=== PATIENT | male | born 1950 | race Caucasian/White ===

== ENCOUNTER 2018-01-15 06:35 | Outpatient (CLI) | payer MEDICARE ==
--- NOTE | 2018-01-15 08:28 | ULT ---
ABDOMINAL AORTIC ULTRASOUND: HISTORY: A 67-year-old male with a history of abdominal aortic aneurysm screening. Coronary artery arteriovas cular disease. No evidence for an aortic aneurysm. There are some changes of atherosclerosis within the aorta. The bifurcation and proximal iliac vessels show no evidence for aneurysm. IMPRESSION: No evidence of abdominal or proximal iliac artery aneurysm. Exam is limited because of body habitus and bowel gas. Evidence for abdominal aortic atherosclerosis. POS: OFF
== END 2018-01-15 06:36 | disposition home or self-care (01) ==
LOC: ULT 06:35
PROVIDERS: ATTEND Family Medicine
DX: Z13.6 Encounter for screening for cardiovascular disorders (principal); I70.0 Atherosclerosis of aorta
CPT/HCPCS: 76775

== ENCOUNTER 2018-02-01 16:02 | Outpatient (CLI) | payer MEDICARE ==
--- NOTE | 2018-02-01 16:41 | ULT ---
TESTICULAR ULTRASOUND: 02/01/18 HISTORY: Right testicle pain. Ultrasound imaging of the right and left testes were performed. The right testicle measures 4.1 and t he left 4.6 cm in size. No testicular masses or identified. A somewhat complex 5 mm epididymal cyst i s seen on the left and a small 3 mm cyst is seen in the right epididymis. DOPPLER EVALUATION WITH SPECTRAL ANALYSIS: Normal flow is shown to both testes. IMPRESSION: Small epididymal cyst with small left hydrocele. POS: [facility]
== END 2018-02-01 16:03 | disposition home or self-care (01) ==
LOC: ULT 16:02
PROVIDERS: ATTEND Urology
DX: N43.3 Hydrocele, unspecified (principal); N50.3 Cyst of epididymis
CPT/HCPCS: 76870; 81001; 87086; 93976; G0103; 36415

== ENCOUNTER 2018-06-14 06:33 | Day surgery (SDC) | payer MEDICARE ==
[2018-06-13 11:09] VITALS: BMI 31.3
[~2018-06-14 06:33] MED LIST: Cyclopentolate 1% Opth Drop 2 ML BOT L EYE SCH; Phenylephrine 2.5% Ophth Soln 5 ML BOT L EYE SCH
[2018-06-14] MEDS ORDERED: Phenylephrine 2.5% Ophth Soln 5 ML BOT ONE (06:55)
[2018-06-14] MEDS ORDERED: Cyclopentolate 1% Opth Drop 2 ML BOT ONE (06:55)
[2018-06-14] MEDS ORDERED: Midazolam HCl 2 mg/2 ml Vial ONE (07:56)
[2018-06-14] MEDS ORDERED: PROPOFOL 20 ML ONE (07:57)
--- NOTE | 2018-06-14 10:46 | OP ---
DATE OF PROCEDURE: 06/14/2018 PREOPERATIVE DIAGNOSIS: Vitreous opacifications membrane, left eye. POSTOPERATIVE DIAGNOSIS: Vitreous opacifications membrane, left eye. PROCEDURE: Pars plana vitrectomy and membrane peel, left eye. SURGEON: Dr. Alberto Fraga ANESTHESIA: Local with monitored anesthesia care. COMPLICATIONS: None. PROCEDURE IN DETAIL: The patient identified in the preoperative holding area. Appropriate informed consent for the planned surgical procedure on the left eye had been obtained. The patient was transp orted to the operative suite. Appropriate cardiopulmonary monitoring established. Local anesthesia obtained retrobulbar. Modified Van Lint lid block using 50:50 mixture of 4% lidocaine and 0.75% bupi vacaine. The patient was prepped and draped in the usual sterile manner for ophthalmic surgery on th e left eye. Lid speculum was placed in the left eye. The 25-gauge trocars were placed in conjunctiv a and sclera supratemporally, inferotemporally, and supranasally. Infusion line was placed inferotem porally. Light pipe and vitreous cutter were inserted into the eye. Core vitrectomy was performed. Vitreous membranes were peeled from the retinal surface and trimmed into the periphery using wide fi eld viewing system, the periphery was examined using wide field viewing the peripheral laser and prop hylactic laser was placed behind the sclerotomies using endolaser photocoagulation. Trocars were rem jose. The eye was noted to retain pressure well, retrobulbar Kenalog and subconjunctival Ancef were placed. Atropine and antibiotic ointment were placed. The eye was patched and shielded. The patien t was taken to the postoperative recovery unit in good condition having suffered no immediate periope rative complications. DISCHARGE INSTRUCTIONS: The patient was instructed to keep patch and shield on, avoid lifting or elidia ding, and follow up in the morning with Dr. Fraga.
[2018-06-14] MEDS ORDERED: Lidocaine 4% PF 5 ML AMP ONE (12:01)
[2018-06-14] MEDS ORDERED: PROPOFOL 200 MG/20 ML VIAL ONE (12:01)
[2018-06-14] MEDS ORDERED: Bupivacaine 0.75% 10 ML AMP ONE (12:01)
[2018-06-14] MEDS ORDERED: CEFAZOLIN 1 GM VIAL ONE (12:01)
[2018-06-14] MEDS ORDERED: Triamcinolone 40 MG/ML VIAL ONE (12:01)
[2018-06-14] MEDS ORDERED: Lidocaine 1% PF 5 ML VIAL ONE (12:01)
[2018-06-14] MEDS ORDERED: Maxitrol 0.1% Opth Oint 3.5 GM TUBE ONE (12:01)
== END 2018-06-14 09:39 | disposition home or self-care (01) ==
LOC: SDC 06:33
PROVIDERS: ATTEND Ophthalmology Retina Specialist
PROC: 08T53ZZ Resection of Left Vitreous, Percutaneous Approach (ICD-10-PCS; principal; 2018-06-14)
PROC: 08QF3ZZ Repair Left Retina, Percutaneous Approach (ICD-10-PCS; 2018-06-14)
PROC: 08NF3ZZ Release Left Retina, Percutaneous Approach (ICD-10-PCS; 2018-06-14)
DX: H43.312 Vitreous membranes and strands, left eye (principal); Z79.02 Long term (current) use of antithrombotics/antiplatelets; Z79.82 Long term (current) use of aspirin; Z79.899 Other long term (current) drug therapy
CPT/HCPCS: J0690; J2001; J2250; J2704; J3301; J3490

== ENCOUNTER 2018-07-16 13:25 | Outpatient (CLI) | payer MEDICARE ==
[~2018-07-16 13:25] MED LIST changes: -Cyclopentolate 1% Opth Drop 2 ML BOT L EYE SCH; +Gadobenate Dimeglumine 529 MG/1 ML (20ML VIAL) ONE; -Phenylephrine 2.5% Ophth Soln 5 ML BOT L EYE SCH
--- NOTE | 2018-07-17 12:07 | MRI ---
MRI PELVIS (PROSTATE) WITH AND WITHOUT IV CONTRAST: HISTORY: A 67-year-old male with a normal PSA of 0.42 on 02/01/2018. Disorder of prostate, unspecified. Family history of malignant neoplasm of prostate. TECHNIQUE: Multiplanar, multisequence MRI of the pelvis was performed with and without IV contrast using the pro state protocol. Review was also performed on an independent 3D work station. FINDINGS: The prostate measures 4 x 2.5 x 3.5 cm with a volume of 18 cc. No focal abnormal area of restricted diffusion is seen in the peripheral zone. No lentiform area of abnormally decreased T2 signal is seen in the transitional zone. No focal arterial enhancing mass is identified. The prostatic capsule is intact. The seminal vesicles are intact. No lymphadenopathy is seen. Pelvic sidewall is normal. No abnormality of the visualized portions of the rectum is note d. The transitional zone demonstrates an organized chaos pattern consistent with BPH. No abnormal are as of signal replacement are seen on the T1 weighted sequences of the pelvis to suggest osseous metas tatic disease. IMPRESSION: PIRADS 2: low (clinically significant prostate cancer is unlikely to be present). This exam was interpreted in consultation with Florencio Cosby and Brendan Wong who concur. POS: [facility]
== END 2018-07-16 13:26 | disposition home or self-care (01) ==
LOC: TBSIIMAG 13:25
PROVIDERS: ATTEND Urology
DX: N42.9 Disorder of prostate, unspecified (principal); Z80.42 Family history of malignant neoplasm of prostate
CPT/HCPCS: 72197; 82565; A9579

== ENCOUNTER 2019-01-24 17:56 | Emergency (ER) | payer MEDICARE, OTHER ==
--- NOTE | 2019-01-24 18:46 | RAD ---
PORTABLE CHEST: 01/24/19 HISTORY: Shortness of breath. COMPARISON: 06/15/14. FINDINGS: Mild cardiomegaly with postop sternotomy change. I cannot exclude atelectasis or infiltrate in the le ft lung base. The lungs otherwise appear clear. There is no evidence of avascular congestion. IMPRESSION: Question atelectasis or infiltrate in the left lung base. POS: [facility]
[2019-01-24 18:57] LABS: #Basophils 0.1 thou/uL (0.0-0.2); #Eosinphils 0.1 thou/uL (0.0-0.7); #Lymphocytes 1.9 thou/uL (1.20-3.40); #Monocytes 0.6 thou/uL (0.11-0.59); #Neutrophils 6.5 thou/uL (1.40-6.50); %Basophils 0.7 % (0.0-1.0); %Eosinophils 1.5 % (0.0-10.0); %Lymphocytes 20.5 % (21.0-51.0); %Monocytes 6.3 % (0.0-10.0); Hemoglobin 15.1 g/dL (14.0-18.0); Mean Corpuscular HGB CONC 34.1 g/dL (32.0-36.0); Mean Corpuscular Hemoglobin 30.6 pg (27.0-31.0); Mean Corpuscular Volume 89.9 fL (78.0-98.0); Mean Platelet Volume 7.3 fL (7.4-10.4); Platelet Count 162 thou/uL (130-400); RBC Distribution Width 11.7 % (11.5-14.5); Red Blood Cell (RBC) Count 4.93 mill/uL (4.70-6.10); White Blood Cell (WBC) Count 9.2 thou/uL (4.8-10.8)
[2019-01-24 19:20] LABS: ALT (SGPT) 22 U/L (8-55); AST (SGOT) 22 U/L (5-34); Albumin 4.7 g/dL (3.4-4.8); Alkaline Phosphatase 64 U/L (40-150); Anion Gap 12 mmol/L (10-20); BUN (Urea Nitrogen) 26 mg/dL (8.4-25.7); Bilirubin, Total 1.1 mg/dL (0.2-1.2); Calc. Creatinine Clearance 0 mL/min (70-130); Carbon Dioxide 29 mmol/L (23-31); Chloride 104 mmol/L (98-107); Estimated GFR-MDRD 47; Globulin 2.1 g/dL (2.4-3.5); Glucose 107 mg/dL (80-115); Potassium 4.3 mmol/L (3.5-5.1); Protein, Total 6.8 g/dL (5.8-8.1); Sodium 141 mmol/L (136-145)
== END 2019-01-24 20:15 | disposition home or self-care (01) ==
LOC: ERS 17:56
DX: R06.02 Shortness of breath (principal); R60.0 Localized edema
CPT/HCPCS: 36415; 71045; 80053; 83880; 84484; 85025; 93005

== ENCOUNTER 2019-02-19 20:30 | Outpatient (CLI) | payer MEDICARE, OTHER | END 2019-02-19 20:31 | disposition home or self-care (01) | LOC: SLEEPLAB 20:30 | PROVIDERS: ATTEND Family Medicine | DX: G47.33 Obstructive sleep apnea (adult) (pediatric) (principal); G47.31 Primary central sleep apnea | CPT/HCPCS: 95811 ==

== ENCOUNTER → 2019-05-23 | Day surgery (SDC) | payer MEDICARE, OTHER ==
[2019-05-22 13:37] VITALS: BMI 27.6
[~2019-05-23] MED LIST changes: +Bupivacaine 10 ML VIAL ONE; +CEFAZOLIN 1 GM VIAL ONE; +Cyclopentolate 1% Opth Drop 2 ML BOT ONE; +EPINEPHrine 0.3 MG in Ophthalmic Irrigation Solution 500 ML IVP SCH; +Fentanyl 100 MCG/2 ML VIAL ONE; -Gadobenate Dimeglumine 529 MG/1 ML (20ML VIAL) ONE; +Lidocaine 1% PF 5 ML VIAL ONE; +Lidocaine 4% PF 5 ML AMP ONE; +Midazolam HCl 2 mg/2 ml Vial ONE; +PROPOFOL 200 MG/20 ML VIAL ONE; +Phenylephrine 2.5% Ophth Soln 5 ML BOT ONE; +Tobramycin/Dexamethasone Ophth Oint 3.5 GM TUBE ONE; +Triamcinolone 40 MG/ML VIAL ONE
--- NOTE | 2019-05-23 13:23 | OP ---
DATE OF PROCEDURE: 05/23/2019 PREOPERATIVE DIAGNOSIS: Vitreous opacities, right eye. POSTOPERATIVE DIAGNOSIS: Vitreous opacities, right eye. NAME OF THE PROCEDURE PERFORMED: 25-gauge pars plana vitrectomy, right eye. ESTIMATED BLOOD LOSS: None. SPECIMENS REMOVED: None. COMPLICATIONS: None. ANESTHESIA: MAC with retrobulbar block. DESCRIPTION OF PROCEDURE: The patient was identified in the preoperative holding area. The correct eye being the right eye was marked for surgery. The patient was taken to the operating room, where MAC anesthesia was induced. A retrobulbar block was administered to the right eye. The block consisted of 1:1 ratio of 4% lidocaine and 0.75% Marcaine. A total of 5 mL was administered. The right eye was then prepped and draped in the usual sterile ophthalmic fashion for surgery. A wire lid speculum was placed. A standard 25-gauge pars plana vitrectomy platform was fashioned with the trocars placed approximately 3.5 mm from the limbus. The infusion was noted to be within the vitreous cavity prior to being turned on to infusion pressure of 30 mmHg. The light pipe microvitrector was introduced in the eye and abutment visualization of the BIOM viewing system. A careful core and peripheral shave vitrectomy performed with the assistance of Kenalog. Following completion of vitrectomy, a 360-degree scleral depressed exam of the periphery was performed, which revealed no defects. The cannulas were sequentially removed and all sclerotomies were noted to be watertight. Subconjunctival Ancef and Kenalog were injected. The wire lid speculum was removed followed by application of TobraDex ophthalmic ointment, light patch and shield. The patient tolerated the procedure well and was taken to the outpatient recovery area in good condition. Job ID: [id number]
== END ==
LOC: SDC 06:03
PROVIDERS: ATTEND Ophthalmology Retina Specialist
PROC: 08T43ZZ Resection of Right Vitreous, Percutaneous Approach (ICD-10-PCS; principal; 2019-05-23)
DX: H43.391 Other vitreous opacities, right eye (principal); I25.10 Atherosclerotic heart disease of native coronary artery without angina pectoris; I10 Essential (primary) hypertension; N40.0 Benign prostatic hyperplasia without lower urinary tract symptoms; Z87.891 Personal history of nicotine dependence; Z79.02 Long term (current) use of antithrombotics/antiplatelets; Z79.899 Other long term (current) drug therapy; Z88.8 Allergy status to other drugs, medicaments and biological substances; Z95.1 Presence of aortocoronary bypass graft; Z95.5 Presence of coronary angioplasty implant and graft
CPT/HCPCS: J0171; J0690; J2001; J2250; J2704; J3010; J3301; J3490

== ENCOUNTER 2020-01-29 14:30 | Outpatient (CLI) | payer MEDICARE, OTHER ==
--- NOTE | 2020-01-29 15:58 | MRI ---
MRI OF THE THORACIC SPINE WITHOUT CONTRAST: INDICATION: History of mid thoracic spine pain. COMPARISON: Spinal radiograph dated 01/23/2020. FINDINGS: There is a 2.6 cm cyst within the superior pole of the left kidney. No acute fracture is evident. There are Modic end plate degenerative changes seen at the T4-5 and T7 -T8 intervertebral level. The spinal cord demonstrates a normal signal intensity and contour. At T1-T2, there is no appreciable central canal or neural foraminal narrowing. At T2-T3, there is no appreciable central canal or neural foraminal narrowing. At T3-T4, there is no appreciable central canal or neural foraminal narrowing. At T4-5, there is no appreciable central canal or neural foraminal narrowing. At T5-6, there is no appreciable central canal or neural foraminal narrowing. At T6-7, there is no appreciable central canal or neural foraminal narrowing. At T7-T8, there is no appreciable central canal or neural foraminal narrowing. At T8-T9, there is no appreciable central canal or neural foraminal narrowing. At T9-T10, there is mild facet joint degenerative change, but no appreciable central canal or neural foraminal narrowing. At T10-T11, there is no appreciable central canal or neural foraminal narrowing. At T11-T12, there is no appreciable central canal or neural foraminal narrowing. At T12-L1, there is no appreciable central canal or neural foraminal narrowing. IMPRESSION: Mild spondylosis of the thoracic spine without appreciable central canal or neural foraminal narrowin g. Left renal cyst. POS: [facility]
== END 2020-01-29 14:31 | disposition home or self-care (01) ==
LOC: TBSIIMAG 14:30
PROVIDERS: ATTEND Neurological Surgery
DX: M54.6 Pain in thoracic spine (principal); M47.814 Spondylosis without myelopathy or radiculopathy, thoracic region; N28.1 Cyst of kidney, acquired
CPT/HCPCS: 72146

== ENCOUNTER 2020-10-21 15:13 | Outpatient (CLI) | payer MEDICARE, OTHER | END 2020-10-21 15:14 | disposition home or self-care (01) | LOC: CTENTCT 15:13 | PROVIDERS: ATTEND Specialist | DX: J01.81 Other acute recurrent sinusitis (principal) | CPT/HCPCS: 70486 ==

== ENCOUNTER 2020-11-16 09:57 | Outpatient (CLI) | payer MEDICARE, OTHER ==
[2020-11-16 10:32] LABS: Hemoglobin 14.7 g/dL (13.5-17.5); Mean Corpuscular HGB CONC 33.3 g/dL (32.0-36.0); Mean Corpuscular Hemoglobin 29.5 pg (27.0-33.0); Mean Corpuscular Volume 88.8 fl (81.2-95.1); Mean Platelet Volume 9.7 fl (7.4-10.4); Platelet Count 155 10x3/uL (150-450); RBC Distribution Width 12.4 % (11.5-14.5); Red Blood Cell (RBC) Count 4.98 10x6/uL (4.32-5.72); White Blood Cell (WBC) Count 7.6 10x3/uL (3.5-10.5)
[2020-11-16 10:45] LABS: Anion Gap 13 mmol/L (10-20); BUN (Urea Nitrogen) 21 mg/dL (8.4-25.7); Calc. Creatinine Clearance 0 mL/min (70-130); Calcium 9.7 mg/dL (7.8-10.44); Carbon Dioxide 29 mmol/L (23-31); Chloride 104 mmol/L (98-107); Glucose 133 mg/dL (80-115); Potassium 4.1 mmol/L (3.5-5.1); Sodium 142 mmol/L (136-145)
[2020-11-16 22:42] LABS: SARS-CoV-2 PCR by NAA Not Detected (NotDetected)
== END 2020-11-16 09:58 | disposition home or self-care (01) ==
LOC: LABBT 09:57
PROVIDERS: ATTEND Specialist
DX: Z01.818 Encounter for other preprocedural examination (principal); J34.2 Deviated nasal septum; J34.3 Hypertrophy of nasal turbinates; J32.9 Chronic sinusitis, unspecified; Z20.822 Contact with and (suspected) exposure to COVID-19
CPT/HCPCS: 80048; 85027; 93005; U0003; U0005; 87635; 93010

== ENCOUNTER 2020-11-19 08:16 | Day surgery (SDC) | payer MEDICARE, OTHER ==
[2020-11-18 12:10] VITALS: BMI 29.5
[2020-11-19] MEDS ORDERED: AFRIN NASAL MIST 15 ML BOT ONE (08:53)
[2020-11-19] MEDS ORDERED: Lidocaine 1% w/Epinephrine 1:100K 20 ML VIAL ONE (09:23)
[2020-11-19] MEDS ORDERED: Bacitracin Zinc Ointment 30 gm TUBE ONE (09:23)
[2020-11-19] MEDS ORDERED: EPINEPHrine 1 MG/ML AMP ONE (09:23)
[2020-11-19] MEDS ORDERED: Fentanyl 100 MCG/2 ML VIAL ONE ×2 (09:25→11:34)
[2020-11-19] MEDS ORDERED: Midazolam HCl 2 mg/2 ml Vial ONE ×2 (09:25→09:45)
[2020-11-19] MEDS ORDERED: Lidocaine 1% PF 5 ML VIAL ONE (10:08)
[2020-11-19] MEDS ORDERED: Glycopyrrolate 0.2 MG/ML 5 ML SYRINGE ONE (10:08)
[2020-11-19] MEDS ORDERED: Rocuronium Bromide 10 MG/ML (10ML VIAL) ONE (10:08)
[2020-11-19] MEDS ORDERED: Dexamethasone 20 MG/5 ML VIAL ONE (10:08)
[2020-11-19] MEDS ORDERED: PROPOFOL 200 MG/20 ML VIAL ONE (10:08)
[2020-11-19] MEDS ORDERED: Ondansetron PF 4 MG/2 ML Vial ONE (10:08)
[2020-11-19] MEDS ORDERED: ePHEDrine 50 MG/ML VIAL ONE (10:08)
== END 2020-11-19 14:01 | disposition home or self-care (01) ==
LOC: SDC 08:16
PROVIDERS: ATTEND Specialist
PROC: 09BT8ZZ Excision of Left Frontal Sinus, Via Natural or Artificial Opening Endoscopic (ICD-10-PCS; principal; 2020-11-19)
PROC: 09BS8ZZ Excision of Right Frontal Sinus, Via Natural or Artificial Opening Endoscopic (ICD-10-PCS; 2020-11-19)
PROC: 099R8ZZ Drainage of Left Maxillary Sinus, Via Natural or Artificial Opening Endoscopic (ICD-10-PCS; 2020-11-19)
PROC: 099Q8ZZ Drainage of Right Maxillary Sinus, Via Natural or Artificial Opening Endoscopic (ICD-10-PCS; 2020-11-19)
PROC: 09SM0ZZ Reposition Nasal Septum, Open Approach (ICD-10-PCS; 2020-11-19)
PROC: 09TL8ZZ Resection of Nasal Turbinate, Via Natural or Artificial Opening Endoscopic (ICD-10-PCS; 2020-11-19)
DX: J01.91 Acute recurrent sinusitis, unspecified (principal); J32.9 Chronic sinusitis, unspecified; J34.2 Deviated nasal septum; J34.3 Hypertrophy of nasal turbinates; J34.89 Other specified disorders of nose and nasal sinuses; J30.89 Other allergic rhinitis; E78.00 Pure hypercholesterolemia, unspecified; I10 Essential (primary) hypertension; K21.9 Gastro-esophageal reflux disease without esophagitis; Z79.02 Long term (current) use of antithrombotics/antiplatelets; Z79.899 Other long term (current) drug therapy; Z87.891 Personal history of nicotine dependence; Z88.8 Allergy status to other drugs, medicaments and biological substances; Z95.1 Presence of aortocoronary bypass graft
CPT/HCPCS: J0171; J1100; J2250; J2405; J2704; J3010; J3490

== ENCOUNTER 2021-02-18 07:01 | Day surgery (SDC) | payer MEDICARE, OTHER ==
[2021-02-17 12:49] VITALS: BMI 28.8
[2021-02-18] MEDS ORDERED: PROPOFOL 200 MG/20 ML VIAL ONE (10:07)
== END 2021-02-18 11:20 | disposition home or self-care (01) ==
LOC: SDC 07:01
PROVIDERS: ATTEND Internal Medicine Gastroenterology
PROC: 0DJD8ZZ Inspection of Lower Intestinal Tract, Via Natural or Artificial Opening Endoscopic (ICD-10-PCS; principal; 2021-02-18)
PROC: 0DB58ZX Excision of Esophagus, Via Natural or Artificial Opening Endoscopic, Diagnostic (ICD-10-PCS; 2021-02-18)
DX: R19.7 Diarrhea, unspecified (principal); K22.70 Barrett's esophagus without dysplasia; K92.2 Gastrointestinal hemorrhage, unspecified; K31.89 Other diseases of stomach and duodenum; K21.9 Gastro-esophageal reflux disease without esophagitis; I25.10 Atherosclerotic heart disease of native coronary artery without angina pectoris; I10 Essential (primary) hypertension; E78.5 Hyperlipidemia, unspecified; Z79.899 Other long term (current) drug therapy; Z87.891 Personal history of nicotine dependence; Z88.8 Allergy status to other drugs, medicaments and biological substances; Z86.010 Personal history of colon polyps; Z95.1 Presence of aortocoronary bypass graft; Z95.5 Presence of coronary angioplasty implant and graft
CPT/HCPCS: 88305; J2704

== ENCOUNTER 2022-07-27 13:33 | Outpatient (CLI) | payer MEDICARE | END 2022-07-27 13:34 | disposition home or self-care (01) | LOC: LABBT 13:33 | PROVIDERS: ATTEND Family Medicine | DX: R51.9 Headache, unspecified (principal) | CPT/HCPCS: 70450 ==